=== PATIENT | male | born 1995 | race Caucasian/White ===

== ENCOUNTER 2019-05-19 19:04 | Emergency (ER) | payer SELFPAY ==
[2019-05-19 19:18] VITALS: BP 143/79; PULSE 99; RESP 16; TEMP 37.2; O2SAT 97; BMI 26.2
[2019-05-19 19:34] VITALS: PULSE 76
[2019-05-19 19:40] VITALS: BP 124/85; PULSE 76; RESP 18; TEMP 36.4; O2SAT 98
--- NOTE | 2019-05-19 19:40 | XR_ITS ---
WS: [id number] XR knee RT 3V* [id number] REASON FOR EXAM: injury FINDINGS: The meniscal spaces are normal. No fractures of the knee are seen. The patella femoral articulation normal. The patella tibial space normal. XR/XR knee RT 3V* [id number] IMPRESSION: Negative right knee
--- NOTE | 2019-05-19 19:40 | XR_ITS ---
WS: [id number] XR ankle RT min 3V* [id number] REASON FOR EXAM: injury FINDINGS: The ankle mortise is normal. No fractures tibia, fibula, or talus. The posterior shelf the tibia was normal. XR/XR ankle RT min 3V* [id number] IMPRESSION: Negative right ankle.
--- NOTE | 2019-05-19 19:41 | ED_ITS ---
HPI - Extremity Problem General: Chief complaint: Extremity Injury, Lower Stated complaint: right leg injury Time Seen by Provider: 05/19/19 19:38 Source: patient Mode of arrival: ambulatory Limitations: no limitations History of Present Illness: HPI Narrative: 24-year-old male states he fell down a cave yesterday. He states he rolled his right ankle and has had right ankle pain and knee pain since then. He states the pain is sharp in nature and rates it a 6 out of 10. He has been ambulating but states that it hurts to walk. He denies any other injuries and denies hitting his head. MD Complaint: extremity pain Onset (ago): day(s) Pain Consistency: constant Location: right Severity scale (1-10): 5 Quality: sharp Relieving factors: immobilization Exacerbating factors: weight bearing Associated symptoms: Deny chest pain, fever(s) or rash Review of Systems Const: Denies: fever, chills, body aches or change in appetite Eyes: Denies: blurry vision or eye discomfort ENMT: Denies: throat pain or dental pain Card: Denies: chest pain Resp: Denies: shortness of breath GI: Denies: abdominal pain, nausea, vomiting or diarrhea : Denies: painful urination Musc: Reports: joint pain; Denies: neck pain or back pain Skin/Breast: Denies: rash Neuro: Denies: headache Psych: Denies: depression Malcolm/Lymph: Denies: easy bruising All/Imm: Denies: hives PFSH ED PFSH: Social History Smoking and tobacco status: current every day smoker Physical Exam Const: COMMON NORMALS: no apparent distress, oriented x3 and healthy appearing HENMT: COMMON NORMALS: normocephalic and head/scalp atraumatic HEAD & SCALP: normocephalic and atraumatic Eye: COMMON NORMALS: PERRL and EOMs intact bilaterally PUPIL: Yes PERRL Neck/C-Spine: COMMON NORMALS: full ROM and supple Chest: COMMONS NORMALS: inspection of chest normal and palpation of chest normal Resp: COMMON NORMALS: normal respiratory effort, no retractions, no use of accessory muscles and clear to auscultation bilaterally AUSCULTATION: clear to auscultation bilaterally Cardio: COMMON NORMALS: regular rate, regular rhythm and no murmurs RATE: regular rate RHYTHM: regular rhythm GI: COMMON NORMALS: normal to inspection, nondistended, normoactive bowel sounds, soft to palpation, non-tender and no masses PALPATION: Yes soft Extremity: COMMON NORMALS: normal to inspection and full ROM NARRATIVE EXTREMITY EXAM: tenderness over right lateral ankle and knee Neuro: COMMON NORMALS: oriented x3, moves all extremities and no focal motor deficits Psych: COMMON NORMALS: mental status grossly normal, thought process normal and cooperative THOUGHT PROCESS: normal thought process Skin: COMMON NORMALS: no rashes or lesions noted and no wounds GENERAL SKIN EXAM: no rashes or lesions noted Course Vital Signs: Vital signs: Vital Signs Temperature 97.6 F 05/19/19 19:40 Pulse Rate 76 05/19/19 19:40 Respiratory Rate 18 05/19/19 19:40 Blood Pressure 124/85 05/19/19 19:40 Pulse Oximetry 98 05/19/19 19:40 MDM - Extremity (Nontraumatic) MDM Narrative: Medical decision making narrative: Patient presents here with an ankle sprain from a fall. Patient's x-ray here shows no acute fracture to his knee or ankle. Patient placed in Shad wrap and is to weight-bear as tolerated. He is stable for discharge and is to follow-up with primary care doctor in 3 to 5 days return if worsening. Imaging Data^: xr r knee: Attestation: I personally reviewed and interpreted this imaging study as follows: My impression: no acute abnormality xr r ankle: Attestation: I personally reviewed and interpreted this imaging study as follows: My impression: no acute abnormality Discharge Plan Discharge Patient Disposition: Home, Self-Care Clinical Impression: Ankle sprain and strain Condition: Stable Prescriptions: New EC-Naprosyn 500 mg tablet,delayed release (DR/EC) 500 mg PO BID PRN (Reason: pain) Qty: 20 RF: 0 Discharge Orders: Discharge Order (Routine); Ordered 05/19/19 Ordered By: Zabrina Monaco Discharge Diet: Advance as tolerated Discharge Activity: Resume usual activity Patient Instructions: Ankle Sprain (ED) Coding Level of Care Code ED Answering Service Operator for Analyg Fwd Exam Comprehensive
[2019-05-19] MEDS: naproxen 500 mg Tablet PO (19:48)
[2019-05-19 20:31] VITALS: BP 120/86; PULSE 72; RESP 16; O2SAT 98
--- NOTE | 2019-05-19 20:58 | PC.NURSE ---
Agree with patient assessment.
== END 2019-05-19 20:31 | disposition home or self-care (01) ==
PROVIDERS: Emergency Provider Emergency Medicine
DX: S93.401A Sprain of unspecified ligament of right ankle, initial encounter (principal); S96.911A Strain of unspecified muscle and tendon at ankle and foot level, right foot, initial encounter; F17.200 Nicotine dependence, unspecified, uncomplicated; W17.89XA Other fall from one level to another, initial encounter
CPT/HCPCS: 12345; 73562; 73610; 99281; 99283

== ENCOUNTER 2023-02-07 02:15 | Inpatient (IN) | payer OTHER, SELFPAY ==
[2023-02-07 02:18] VITALS: BP 147/118; PULSE 123; RESP 20; TEMP 36.4; O2SAT 100; BMI 27.1
[2023-02-07 03:05] LABS: Basophils % 0.2 %; Eosinophils # 0.1 10^3/uL (0.0-0.8); Eosinophils % 0.5 %; Hematocrit 47.7 % (37-53); Lymphocytes # 3.3 10^3/uL (0.8-4.8); Mean Corpuscular HGB Conc 35.8 g/dL (30-55); Mean Corpuscular Hemoglobin 31.7 pg (27-33); Mean Corpuscular Volume 88.3 fl (82-101); Mean Platelet Volume 9.1 fL (7.4-10.4); Monocytes # 0.9 10^3/uL (0.2-0.9); Monocytes % 6.5 %; Neutrophils # 8.91 10^3/uL (1.8-7.7); Neutrophils % 67.5 %; Nucleated Red Blood Cells % 0 %; Platelet Count 332 10^3/cmm (157-399); Red Cell Distribution Width 11.3 % (12.1-15.1)
--- NOTE | 2023-02-07 03:15 | ED.C_ITS ---
HPI - Psych 2 General: Chief Complaint: Psychiatric Symptoms Stated Complaint: HI Time Seen by Provider: 02/07/23 02:17 History of Present Illness: Patient presents to the ER with homicidal ideation and says he is acutely psychotic. Patient states that if he leaves here he is gone to go kill someone or kill himself. Patient states he has been inpatient here before and would like to go inpatient again before he does something he does not want to do. Patient does admit to drinking and smoking weed tonight. Upon further talking nursing patient told him that his and kids ran off to another man's house and he wants to go over there and kill him or kill himself Review of Systems 2 General: Reports: 10 or more systems reviewed and unremarkable except in HPI and below PFSH ED 2 PFSH: Social History Smoking and tobacco/nicotine status: current every day tobacco/nicotine user Physical Exam 2 Const: COMMON NORMALS: no acute distress, average body habitus, patient oriented x3, no limitations, healthy appearing, alert and well nourished HENMT: COMMON NORMALS: normocephalic, atraumatic, hearing grossly normal bilaterally, external ears normal, Normal external nose present, moist oral mucous membranes and oropharynx normal HEAD & SCALP: normocephalic and atraumatic NOSE: Normal external nose present EXTERNAL EAR: Yes external ears normal Neck/C-Spine: COMMON NORMALS: no JVD Chest: COMMONS NORMALS: normal inspection of the chest and normal palpation of entire chest wall Resp: COMMON NORMALS: normal respiratory effort, No retractions, No use of accessory muscles and clear to auscultation bilaterally AUSCULTATION: clear to auscultation bilaterally Cardio: COMMON NORMALS: no JVD, regular rate, regular rhythm, S1 normal heart sound present, S2 normal heart sound present, No gallops present (Cardio), No clicks present (Cardio), No murmurs present (Cardio) and No rub (Cardio) R ATE: regular rate RHYTHM: regular rhythm HEART SOUNDS: S1 normal heart sound present and S2 normal heart sound present GI: COMMON NORMALS: Normal to inspection, nondistended, normoactive bowel sounds present, Soft to palpation, non-tender, No hepatosplenomegaly present and no masses PALPATION: Yes Soft to palpation and Yes No hepatosplenomegaly present Neuro: COMMON NORMALS: patient oriented x3 SENSORIUM/ORIENTATION: Yes alert Course 2 Vital Signs: Vital signs: Vital Signs Temperature 97.6 F 02/07/23 02:18 Pulse Rate 123 H 02/07/23 02:18 Respiratory Rate 20 H 02/07/23 02:18 Blood Pressure 147/118 02/07/23 02:18 Pulse Oximetry 100 02/07/23 02:18 Oxygen Delivery Me thod Room Air 02/07/23 02:18 MDM - Psych Medical Decision Making Patient presents with homicidal and suicidal type ideation. Patient was worked up in a standard psychiatric fashion. Dr. Matthews was consulted who agreed for further evaluation and treatment patient will be placed in MPU. Differential Diagnosis Likely acute psychosis and suicidal ideation Medical Records I reviewed the patient's medical records. Lab Data I reviewed the patient's lab results. 02/07/23 03:00 02/07/23 03:00 Laboratory Results WBC 13.20 10^3/uL (3.29-11.43) H 02/07/23 03:00 RBC 5.40 10^6/uL (3.85-5.65) 02/07/23 03:00 Hgb 17.10 g/dL (11.27-16.99) H 02/07/23 03:00 Hct 47.7 % (37-53) 02/07/23 03:00 MCV 88.3 fl (82-101) 02/07/23 03:00 MCH 31.7 pg (27-33) 02/07/23 03:00 MCHC 35.8 g/dL (30-55) 02/07/23 03:00 RDW 11.3 % (12.1-15.1) L 02/07/23 03:00 Plt Count 332 10^3/cmm (157-399) 02/07/23 03:00 MPV 9.1 fL (7.4-10.4) 02/07/23 03:00 Neut % (Auto) 67.5 % 02/07/23 03:00 Lymph % (Auto) 25.0 % 02/07/23 03:00 Dougherty % (Auto) 6.5 % 02/07/23 03:00 Eos % (Auto) 0.5 % 02/07/23 03:00 Baso % (Auto) 0.2 % 02/07/23 03:00 Neut # (Auto) 8.91 10^3/uL (1.8-7.7) H 02/07/23 03:00 Lymph # (Auto) 3.3 10^3/uL (0.8-4.8) 02/07/23 03:00 Dougherty # (Auto) 0.9 10^3/uL (0.2-0.9) 02/07/23 03:00 Eos # (Auto) 0.1 10^3/uL (0.0-0.8) 02/07/23 03:00 Baso # (Auto) 0.0 10^3/uL (0.0-0.1) 02/07/23 03:00 Nucleated RBC % (auto) 0 % 02/07/23 03:00 Nucleated RBCs # 0.0 /100WBC 02/07/23 03:00 Sodium 137 mmol/L (136-145) 02/07/23 03:00 Potassium 3.4 mmol/L (3.5-5.1) L 02/07/23 03:00 Chloride 99 mmol/L (98-107) 02/07/23 03:00 Carbon Dioxide 25 mmol/L (22-29) 02/07/23 03:00 Anion Gap 16.4 (5-19) 02/07/23 03:00 BUN 13 mg/dL (6-20) 02/07/23 03:00 Creatinine 1.0 mg/dL (0.7-1.2) 02/07/23 03:00 GFR Calculation 91.0 mL/min (90-130) 02/07/23 03:00 Glucose 98 mg/dL (65-115) 02/07/23 03:00 Calculated Osmolality 284 mOsm/kg (285-295) L 02/07/23 03:00 Calcium 10.2 mg/dL (8.5-10.5) 02/07/23 03:00 Total Bilirubin 0.4 mg/dL (0.15-1.2) 02/07/23 03:00 AST 25 U/L (0-40) 02/07/23 03:00 ALT 30 U/L (0-41) 02/07/23 03:00 Alkaline Phosphatase 114 U/L (40-130) 02/07/23 03:00 Total Protein 7.9 g/dL (6.6-8.7) 02/07/23 03:00 Albumin 4.8 g/dL (3.5-5.2) 02/07/23 03:00 Globulin 3.1 g/dL (1.3-4.6) 02/07/23 03:00 Salicylates < 0.3 mg/dL (3-10) L 02/07/23 03:00 Acetaminophen < 5.0 ug/mL (10-30) L 02/07/23 03:00 Ethyl Alcohol 83 mg/dL (0-10) H 02/07/23 03:00 No radiology studies performed this visit Discharge Plan Discharge Patient Disposition: Admitted As Inpatient Clinical Impression: Acute psychosis, Suicidal ideation, Homicidal ideation Condition: Stable Coding Level of Care Code ED Shipping And Receiving Specialist for Jolie Mccoy
[2023-02-07 03:22] LABS: Acetaminophen < 5.0 ug/mL (10-30); Alanine Aminotransferase 30 U/L (0-41); Albumin Level 4.8 g/dL (3.5-5.2); Alcohol Level 83 mg/dL (0-10); Alkaline Phosphatase 114 U/L (40-130); Anion Gap 16.4 (5-19); Aspartate Amino Transferase 25 U/L (0-40); Blood Urea Nitrogen 13 mg/dL (6-20); Calcium 10.2 mg/dL (8.5-10.5); Carbon Dioxide 25 mmol/L (22-29); Chloride 99 mmol/L (98-107); Globulin 3.1 g/dL (1.3-4.6); Glucose 98 mg/dL (65-115); Osmolality Calculated 284 mOsm/kg (285-295); Potassium 3.4 mmol/L (3.5-5.1); Salicylate < 0.3 mg/dL (3-10); Sodium 137 mmol/L (136-145); Total Bilirubin 0.4 mg/dL (0.15-1.2); Total Protein 7.9 g/dL (6.6-8.7)
[2023-02-07 03:23] LABS: Add Urine Microscopic? NO; Charge for UA Resulting for Rev
[2023-02-07 03:33] LABS: Amphetamines Screen Urine Negative (Negative); Barbiturates Screen Urine Negative (Negative); Benzodiazepines Screen Urine Negative (Negative); Cocaine Screen Urine Negative (Negative); Opiate Screen Urine Negative (Negative); PCP Screen Urine Negative (Negative); THC Screen Urine Positive (Negative)
[2023-02-07 03:36] LABS: Bilirubin Urine Neg (Negative); Blood Urine Neg (Negative); Glucose Urine UA Norm (Normal); Ketones Urine Negative (Negative); Leukocyte Esterase Urine Negative (Negative); Nitrate Urine Negative (Negative); Protein Urine Neg (Negative); Specific Gravity, Urine 1.005 (1.005-1.030); Urine Appearance Clear (CLEAR); Urine Color Colorless (Yellow); Urobilinogen Urine Neg (Negative); pH Urine 7 (5-7)
[2023-02-07 03:52] VITALS: BP 146/85; PULSE 77; RESP 18; TEMP 36.8; O2SAT 98
[2023-02-07 03:58] VITALS: BP 134/80; PULSE 115; RESP 16; O2SAT 100
--- NOTE | 2023-02-07 04:01 | PC.NURSE ---
Report called to NPU. All questions and concerns addressed at time of report.
[2023-02-07] MEDS: LORazepam 2 mg Tablet PO (04:27)
[2023-02-07] MEDS: ibuprofen 600 mg Tablet PO ×2 (04:27→15:14)
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
[2023-02-07 06:00] VITALS: RESP 18
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
--- NOTE | 2023-02-07 13:23 | XR_ITS ---
WS: [id number] Right knee, 3 views, 02/07/2023 Clinical Data: recent fall Comparison: Right knee, 05/19/2019 Findings: No fractures or dislocations are seen. The joint spaces are normal. The patella is intact. The soft t issues are unremarkable. Impression: Negative right knee. Kellgren-Grady Classification: grade 0 (none): definite absence of x-ray changes of osteoarthritis
[2023-02-07] MEDS: thiamine 100 mg Tablet PO (13:26)
[2023-02-07] MEDS: multivitamin therapeutic Tablet 1 TAB PO (13:26)
[2023-02-07] MEDS: folic acid 1 mg Tablet PO (13:26)
[2023-02-07 14:00] VITALS: BP 121/71; PULSE 56; RESP 16; TEMP 36.4; O2SAT 97
[2023-02-07] MEDS: nicotine 2 mg Gum BUCCAL ×3 (14:57→20:12)
--- NOTE | 2023-02-07 14:58 | PC.OT ---
OT eval attempt made on 02/07/2023 with nursing reporting pt is not appropriate to be seen. Will attempt at later time.
[2023-02-07 21:05] VITALS: BP 141/82; PULSE 73; RESP 18; TEMP 36.7; O2SAT 93
--- NOTE | 2023-02-07 21:34 | PC.NURSE ---
staff air defense officer here to serve patient with exparte paperwork. Pt became visibly upset w/increased anxiety d/t the orders received. Pt dropped his papers in the floor and want to go back to the floor. Pt is now talking on the phone. Behavior monitoring continues.
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
[2023-02-07] MEDS: trazodone 50 mg Tablet PO (23:23)
--- NOTE | 2023-02-08 06:43 | PC.NURSE ---
pt resting no vs per rn resp documented
[2023-02-08] MEDS: folic acid 1 mg Tablet PO (09:15)
[2023-02-08] MEDS: thiamine 100 mg Tablet PO (09:15)
[2023-02-08] MEDS: multivitamin therapeutic Tablet 1 TAB PO (09:15)
[2023-02-08] MEDS: nicotine 21 mg Patch 1 PATCH TRANSDERMA (09:16)
--- NOTE | 2023-02-08 09:34 | P.NPUPN_ITS ---
Subjective NPU 2 Subjective: Patient presented today reporting that he is starting to be able to think a little bit more clear about the situation. We had a long discussion about the consequences of his choices. And the unfortunate cost that continued behavior like this would have. We talked about the long-term impact on the relationship with his daughters and the importance of him focusing on them and not the relationship with his significant other that has clearly been deteriorating for some time. Mental Status Exam 2 MSE Comments: This is a well-nourished, well-developed, white male, in hospital scrubs, with adequate grooming and eye contact. With extremely long hair. No abnormal movements, except for mild psychomotor agitation. More cooperative with exam in mild to moderate distress. Speech was normal rate and volume. Mood described as better than yesterday; affect congruent. Thought process, organized. Thought content: patient denies active suicidal or homicidal ideation, there were no delusions reported or noted, patient denied any auditory or visual hallucinations. Attention, concentration, and memory appeared intact, but none were formally tested. Alert and oriented times three. Insight and judgment appear improving. Impulse control is impaired. Vitals/I&O/Wt Last Vital Signs Temp 98.0 F 02/07/23 21:05 Pulse 73 02/07/23 21:05 Resp 18 02/07/23 21:05 BP 141/82 02/07/23 21:05 Pulse Ox 93 02/07/23 21:05 O2 Del Method Room Air 02/07/23 14:00 Weight last 48 hrs Weight 90.718 kg Data NPU 02/07/23 03:00 02/07/23 03:00 A&P Assessment and plan (1) Homicidal ideation: (2) Suicidal ideation: (3) Acute psychosis: (4) Partner relational problem: (5) Cannabis use disorder, severe, dependence: (6) PTSD (post-traumatic stress disorder): Plan This is a 27-year-old white male with history of trauma and mental health issues along with active addiction who presents with significant partner relational problem and lethality towards himself and others on a 96-hour hold. 1.? Encourage individual, group, and milieu therapy. 2.? Continue q-15-minute checks for safety. 3. Discussed the possibility of initiating SSRI. 4. Encourage sober living treatment after discharge at the highest level of care to which he is willing to commit. 5. We will monitor for issues of lethality on a 96-hour hold given the clear and present threat. Involuntary Hold Information 2 96 Hour Hold: 96 Hour Involuntary Admission: No Attestations NPU 2 Medical Necessity Statement*: Inpatient hospitalization is medically necessary and the clinically appropriate intervention, at this time. We will monitor medications and make changes as indicated. Likely length of stay is 2-4 days. Coding Level of Care Code Acute Code for [facility] Fwd Diagnoses Homicidal ideation R45.850 Suicidal ideation R45.851 Acute psychosis F23 Partner relational problem Z63.0 Cannabis use disorder, severe, dependence F12.20 PTSD (post-traumatic stress disorder) F43.10
--- NOTE | 2023-02-08 09:46 | PC.NURSE ---
Patient denies avh and si/hi. When asked if he felt like hurting himself or others he stated, that's a no now. He did say he was just sad now because he was given an ex parte yesterday and is upset that it was for his kids. He said, I'd never ever hurt my kids. Patient asked this nurse if I knew any of the motherfuckers that worked at [facility] in [place]. When this RN said no he stated, well I would've burnt the place down if it wasn't so close to the police station.
[2023-02-08] MEDS: ibuprofen 600 mg Tablet PO ×2 (10:18→16:49)
[2023-02-08] MEDS: nicotine 2 mg Gum BUCCAL ×3 (11:40→21:07)
[2023-02-08 14:00] VITALS: BP 127/82; PULSE 80; RESP 18; TEMP 36.6; O2SAT 96
[2023-02-08 22:00] VITALS: BP 148/97; PULSE 65; RESP 16; TEMP 36.6; O2SAT 98
[2023-02-08] MEDS: trazodone 50 mg Tablet PO (22:24)
[2023-02-09 06:00] VITALS: BP 121/79; PULSE 72; RESP 18; O2SAT 98
[2023-02-09] MEDS: thiamine 100 mg Tablet PO (09:03)
[2023-02-09] MEDS: folic acid 1 mg Tablet PO (09:03)
[2023-02-09] MEDS: multivitamin therapeutic Tablet 1 TAB PO (09:04)
[2023-02-09] MEDS: nicotine 21 mg Patch 1 PATCH TRANSDERMA (09:13)
--- NOTE | 2023-02-09 11:26 | P.NPUPN_ITS ---
Subjective NPU 2 Subjective: Patient presented today reporting that he is feeling better overall. He reports that he is focusing on his daughters and being what he needs to be for them and is letting go of this intense feeling he had that he needed to make the relationship with his ex work. He reports that the discussion we had about the 4 billion other women that exist on the planet that that really struck him in July he will think that his best option is to get himself back on track and hope that 1 of those 4 billion women can care about him for him. We discussed working with the social work team tomorrow to start looking at follow-up plans. Mental Status Exam 2 MSE Comments: This is a well-nourished, well-developed, white male, in hospital scrubs, with adequate grooming and eye contact. With extremely long hair. No abnormal movements, except for mild psychomotor agitation. More cooperative with exam in mild to moderate distress. Speech was normal rate and volume. Mood described as better, thinking more clearly; affect congruent. Thought process, organized. Thought content: patient denies active suicidal or homicidal ideation, there were no delusions reported or noted, patient denied any auditory or visual hallucinations. Attention, concentration, and memory appeared intact, but none were formally tested. Alert and oriented times three. Insight and judgment appear improving. Impulse control is impaired. Vitals/I&O/Wt Last Vital Signs Temp 97.9 F 02/08/23 22:00 Pulse 72 02/09/23 06:00 Resp 18 02/09/23 06:00 BP 121/79 02/09/23 06:00 Pulse Ox 98 02/09/23 06:00 O2 Del Method Room Air 02/09/23 06:00 Weight last 48 hrs Weight 95.878 kg Data NPU 02/07/23 03:00 02/07/23 03:00 A&P Assessment and plan (1) Homicidal ideation: (2) Suicidal ideation: (3) Acute psychosis: (4) Partner relational problem: (5) Cannabis use disorder, severe, dependence: (6) PTSD (post-traumatic stress disorder): Plan This is a 27-year-old white male with history of trauma and mental health issues along with active addiction who presents with significant partner relational problem and lethality towards himself and others on a 96-hour hold. 1.? Encourage individual, group, and milieu therapy. 2.? Continue q-15-minute checks for safety. 3. Discussed the possibility of initiating SSRI. 4. Encourage sober living treatment after discharge at the highest level of care to which he is willing to commit. 5. We will monitor for issues of lethality on a 96-hour hold given the concern for active threat. Involuntary Hold Information 2 96 Hour Hold: 96 Hour Involuntary Admission: No Attestations NPU 2 Medical Necessity Statement*: Inpatient hospitalization is medically necessary and the clinically appropriate intervention, at this time. We will monitor medications and make changes as indicated. Likely length of stay is 1-3 days. Coding Level of Care Code Acute Code for [facility] Fwd Diagnoses Homicidal ideation R45.850 Suicidal ideation R45.851 Acute psychosis F23 Partner relational problem Z63.0 Cannabis use disorder, severe, dependence F12.20 PTSD (post-traumatic stress disorder) F43.10
--- NOTE | 2023-02-09 13:30 | PC.NURSE ---
took off nicotine patch & gave to nurses, requested nicotine gum. staff told patient he could have gum at 3:30
[2023-02-09 14:00] VITALS: BP 126/82; PULSE 83; RESP 20; TEMP 36.8; O2SAT 97
[2023-02-09] MEDS: nicotine 2 mg Gum BUCCAL ×4 (15:33→21:54)
[2023-02-09 19:45] VITALS: BP 156/89; PULSE 93; RESP 18; O2SAT 96
[2023-02-10] MEDS: trazodone 50 mg Tablet PO ×2 (00:02→20:23)
[2023-02-10 06:00] VITALS: RESP 16
--- NOTE | 2023-02-10 07:08 | P.NPUPN_ITS ---
Subjective NPU 2 Subjective: Patient presented today reporting that he is feeling better. He once again denied any lethality towards himself or others and continues to express a focus on his daughter's and that he knows that it is not worth it to have any retribution. We discussed continuing to monitor him for safety but at this point not planning on extending the hold. Mental Status Exam 2 MSE Comments: This is a well-nourished, well-developed, white male, in hospital scrubs, with adequate grooming and eye contact. With extremely long hair. No abnormal movements. Cooperative with exam in no acute distress. Speech was normal rate and volume. Mood described as better; affect congruent. Thought process, organized. Thought content: patient denies active suicidal or homicidal ideation, there were no delusions reported or noted, patient denied any auditory or visual hallucinations. Attention, concentration, and memory appeared intact, but none were formally tested. Alert and oriented times three. Insight and judgment appear improving. Impulse control is improving. Vitals/I&O/Wt Last Vital Signs Temp 98.2 F 02/09/23 14:00 Pulse 93 02/09/23 19:45 Resp 16 02/10/23 06:00 BP 156/89 02/09/23 19:45 Pulse Ox 96 02/09/23 19:45 O2 Del Method Room Air 02/09/23 19:45 Weight last 48 hrs Weight 95.878 kg Data NPU 02/07/23 03:00 02/07/23 03:00 A&P Assessment and plan (1) Homicidal ideation: (2) Suicidal ideation: (3) Acute psychosis: (4) Partner relational problem: (5) Cannabis use disorder, severe, dependence: (6) PTSD (post-traumatic stress disorder): Plan This is a 27-year-old white male with history of trauma and mental health issues along with active addiction who presents with significant partner relational problem and lethality towards himself and others on a 96-hour hold. 1.? Encourage individual, group, and milieu therapy. 2.? Continue q-15-minute checks for safety. 3. Discussed the possibility of initiating SSRI. 4. Encourage sober living treatment after discharge at the highest level of care to which he is willing to commit. 5. We will monitor for issues of lethality on a 96-hour hold given the concern for active threat. Involuntary Hold Information 2 96 Hour Hold: 96 Hour Involuntary Admission: No Attestations NPU 2 Medical Necessity Statement*: Inpatient hospitalization is medically necessary and the clinically appropriate intervention, at this time. We will monitor medications and make changes as indicated. Likely length of stay is 1-3 days. Coding Level of Care Code Acute Code for [facility] Fwd Diagnoses Homicidal ideation R45.850 Suicidal ideation R45.851 Acute psychosis F23 Partner relational problem Z63.0 Cannabis use disorder, severe, dependence F12.20 PTSD (post-traumatic stress disorder) F43.10
[2023-02-10] MEDS: thiamine 100 mg Tablet PO (07:55)
[2023-02-10] MEDS: folic acid 1 mg Tablet PO (07:55)
[2023-02-10] MEDS: multivitamin therapeutic Tablet 1 TAB PO (07:55)
[2023-02-10] MEDS: nicotine 2 mg Gum BUCCAL ×4 (07:56→20:35)
[2023-02-10 14:00] VITALS: BP 128/71; PULSE 83; RESP 17; TEMP 36.8; O2SAT 98
[2023-02-10 20:31] VITALS: BP 142/101; PULSE 106; RESP 20; TEMP 36.6; O2SAT 97
[2023-02-11 06:00] VITALS: BP 107/70; PULSE 76; RESP 18; O2SAT 96
--- NOTE | 2023-02-11 06:28 | PC.NURSE ---
When obtain vitals this morning, this tech and the other aid observed a circular bruise on patients left inner bicep. Asked patient about the bruise and patient stated that he woke up yesterday morning and noticed it. Charge nurse was notify
[2023-02-11] MEDS: nicotine 21 mg Patch 1 PATCH TRANSDERMA (08:42)
[2023-02-11] MEDS: thiamine 100 mg Tablet PO (08:43)
[2023-02-11] MEDS: folic acid 1 mg Tablet PO (08:43)
[2023-02-11] MEDS: multivitamin therapeutic Tablet 1 TAB PO (08:43)
[2023-02-11 14:00] VITALS: BP 140/90; PULSE 83; RESP 16; TEMP 36.6; O2SAT 97
[2023-02-11] MEDS: acetaminophen 325 mg Tablet 650 MG PO (16:41)
--- NOTE | 2023-02-11 18:11 | P.NPUPN_ITS ---
Subjective NPU 2 Subjective: Patient presented today reporting that he has been in contact with his mother and brother with hopes of getting his stuff from his ex and has a plan to go down to [place]. He continued to show no signs of the aggressive anger towards the other man. He reported excepting his situation though not being happy about it. He continued to endorse a focus on his daughters and making sure he is doing all that he can do so that he will be able to see them with regularity. He reports that he understands that there will be legal ramifications of the circumstances that led to his hospitalization and he endorses being prepared to do what he has to do to get past that. We discussed a plan for discharge prior to the 96-hour hold running out with tentative plan for discharge tomorrow. Mental Status Exam 2 MSE Comments: This is a well-nourished, well-developed, white male, in hospital scrubs, with adequate grooming and eye contact. With extremely long hair. No abnormal movements. Cooperative with exam in no acute distress. Speech was normal rate and volume. Mood described as better; affect congruent. Thought process, organized. Thought content: patient denies active suicidal or homicidal ideation, there were no delusions reported or noted, patient denied any auditory or visual hallucinations. Attention, concentration, and memory appeared intact, but none were formally tested. Alert and oriented times three. Insight and judgment appear improving. Impulse control is improving. Vitals/I&O/Wt Last Vital Signs Temp 98.2 F 02/11/23 20:27 Pulse 100 02/11/23 20:27 Resp 18 02/11/23 20:27 BP 127/72 02/11/23 20:27 Pulse Ox 95 02/11/23 20:27 O2 Del Method Room Air 02/11/23 20:27 Data NPU 02/07/23 03:00 02/07/23 03:00 A&P Assessment and plan (1) Homicidal ideation: (2) Suicidal ideation: (3) Acute psychosis: (4) Partner relational problem: (5) Cannabis use disorder, severe, dependence: (6) PTSD (post-traumatic stress disorder): Plan This is a 27-year-old white male with history of trauma and mental health issues along with active addiction who presents with significant partner relational problem and lethality towards himself and others on a 96-hour hold. 1.? Encourage individual, group, and milieu therapy. 2.? Continue q-15-minute checks for safety. 3. Discussed the possibility of initiating SSRI. 4. Encourage sober living treatment after discharge at the highest level of care to which he is willing to commit. 5. We will monitor for issues of lethality on a 96-hour hold given the concern for active threat. We will not move forward with a 21-day hold and plan for discharge tomorrow. Involuntary Hold Information 2 96 Hour Hold: 96 Hour Involuntary Admission: No Attestations NPU 2 Medical Necessity Statement*: Inpatient hospitalization is medically necessary and the clinically appropriate intervention, at this time. We will monitor medications and make changes as indicated. Likely length of stay is 1-3 days. Coding Level of Care Code Acute Code for [facility] Fwd Diagnoses Homicidal ideation R45.850 Suicidal ideation R45.851 Acute psychosis F23 Partner relational problem Z63.0 Cannabis use disorder, severe, dependence F12.20 PTSD (post-traumatic stress disorder) F43.10
[2023-02-11 20:27] VITALS: BP 127/72; PULSE 100; RESP 18; TEMP 36.8; O2SAT 95
[2023-02-11] MEDS: nicotine 2 mg Gum BUCCAL (20:29)
[2023-02-12] MEDS: trazodone 50 mg Tablet PO (00:08)
[2023-02-12 06:00] VITALS: BP 129/74; PULSE 82; RESP 16; O2SAT 99
[2023-02-12] MEDS: thiamine 100 mg Tablet PO (07:45)
[2023-02-12] MEDS: multivitamin therapeutic Tablet 1 TAB PO (07:45)
[2023-02-12] MEDS: folic acid 1 mg Tablet PO (07:45)
[2023-02-12] MEDS: acetaminophen 325 mg Tablet 650 MG PO (07:45)
[2023-02-12] MEDS: nicotine 21 mg Patch 1 PATCH TRANSDERMA (10:26)
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
[2023-02-12 12:02] VITALS: BP 129/74; PULSE 82; RESP 16; O2SAT 99
[2023-02-12] MEDS: nicotine 2 mg Gum BUCCAL (14:51)
--- NOTE | 2023-02-12 16:42 | PC.NURSE ---
PT LEFT HIS MEDICATIONS UPON DISCHARGE. ATTEMPTED TO CONTACT PT AND PT DOES NOT HAVE ACCURATE PHONE NUMBER ON FILE WILL PUT MEDICATION IN PYXS IF PT COMES TO GET MEDICATION. MEDICATION WAS A VITAMIN B-1.
--- NOTE | 2023-02-12 16:50 | PC.NURSE ---
PT CALLED BACK AND HAS AGREED TO PICK HIS VITAMINS UP IN THE NEXT COUPLE DAYS.
== END 2023-02-12 16:24 | disposition home or self-care (01) | DRG 885 ==
LOC: ER 03:30 → NP 03:38
PROVIDERS: Admitting Provider Psychiatry & Neurology Psychiatry; Emergency Provider Emergency Medicine; Visit Provider Psychiatry & Neurology Psychiatry
DX: F23 Brief psychotic disorder (principal); R45.851 Suicidal ideations; Z59.00 Homelessness unspecified; R45.850 Homicidal ideations; F17.210 Nicotine dependence, cigarettes, uncomplicated; F12.20 Cannabis dependence, uncomplicated; F43.10 Post-traumatic stress disorder, unspecified; M25.561 Pain in right knee; Z63.0 Problems in relationship with spouse or partner; Z91.51 Personal history of suicidal behavior
CPT/HCPCS: 36415; 73562; 80053; 80306; 80307; 81003; 85025; 97150; 97165; 99285

== ENCOUNTER 2023-02-20 17:56 | Emergency (ER) | payer OTHER, SELFPAY ==
[2023-02-20 17:59] VITALS: BMI 28.5
[2023-02-20 18:02] VITALS: BP 156/104; PULSE 65; RESP 17; TEMP 36.6; O2SAT 98
--- NOTE | 2023-02-20 18:25 | W.ED.PSYCHS ---
HPI - Psych General: Chief Complaint: Psychiatric Symptoms Stated Complaint: SUICIDAL IDEATIONS Time Seen by Provider: 02/20/23 17:58 Source: patient and police Mode of arrival: other (Police) Limitations: no limitations History of Present Illness: 27-year-old male who was arrested this morning. He is brought here by police as a state he made self-harm statements and they [facility] who brought him up here for psych eval. Patient actually had been admitted here little over a week ago and was just released from our psych hospital. Patient states to me he is not suicidal not homicidal he states that he told the officers that he was admitted to the [facility] here a week ago and they brought him up here. Associated symptoms: Deny depression Review of Systems Const: Denies: fever(s), chills, body aches or change in appetite Eyes: Denies: blurry vision or eye discomfort ENMT: Denies: throat pain or dental pain Card: Denies: chest pain Resp: Denies: dyspnea GI: Denies: abdominal pain, nausea, vomiting or diarrhea : Denies: dysuria Musc: Denies: neck pain or back pain Skin/Breast: Denies: rash Neuro: Denies: headache(s) Psych: Denies: depression Malcolm/Lymph: Denies: easy bruising All/Imm: Denies: urticaria PFSH ED PFSH: Social History Smoking and tobacco/nicotine status: current every day tobacco/nicotine user Physical Exam Const: COMMON NORMALS: no acute distress, patient oriented x3 and healthy appearing HENMT: COMMON NORMALS: normocephalic and atraumatic HEAD & SCALP: normocephalic and atraumatic Eye: COMMON NORMALS: Equal, round and reactive pupils present and EOMs intact bilaterally PUPIL: Yes Equal, round and reactive pupils present Neck/C-Spine: COMMON NORMALS: full ROM and supple Chest: COMMONS NORMALS: normal inspection of the chest and normal palpation of entire chest wall Resp: COMMON NORMALS: normal respiratory effort, No retractions, No use of accessory muscles and clear to auscultation bilaterally AUSCULTATION: clear to auscultation bilaterally Cardio: COMMON NORMALS: regular rate, regular rhythm and No murmurs present (Cardio) RATE: regular rate RHYTHM: regular rhythm GI: COMMON NORMALS: Normal to inspection, nondistended, normoactive bowel sounds present, Soft to palpation, non-tender and no masses PALPATION: Yes Soft to palpation Extremity: COMMON NORMALS: normal to inspection and full ROM Neuro: COMMON NORMALS: patient oriented x3, moves all extremities and no focal motor deficits Psych: COMMON NORMALS: mental status grossly normal, Normal thought process present and cooperative THOUGHT PROCESS: Normal thought process present Skin: COMMON NORMALS: no rashes or lesions noted and no wounds GENERAL SKIN EXAM: no rashes or lesions noted Course Vital Signs: Vital signs: Vital Signs Temperature 97.8 F 02/20/23 18:02 Pulse Rate 65 02/20/23 18:02 Respiratory Rate 17 02/20/23 18:02 Blood Pressure 156/104 02/20/23 18:02 Pulse Oximetry 98 02/20/23 18:02 Oxygen Delivery Me thod Room Air 02/20/23 18:02 [facility] - Psych Medical Decision Making Patient [facility] here [facility] with concerns of psychiatric issues patient adamantly denies any SI or HI to me he has been released from penitentiary I did have him evaluated by Dr. Matthews who knows him as he admitting to the [facility] roughly a week and a half ago. Spoke to Dr. Matthews he feels patient is not a threat to himself or others as well he is stable for discharge at this time. Medical Records I reviewed the patient's medical records. No radiology studies performed this visit Discharge Plan Discharge Patient Disposition: Home Clinical Impression: Depression Qualifiers: Depression Type: unspecified Qualified Code(s): F32.A - Depression, unspecified Condition: Stable Prescriptions: No Action Vitamin B-1 (mononitrate) 100 mg Tablet 100 mg PO DAILY 30 Days Qty: 30 1RF Discharge Orders: Discharge ED (Routine); Ordered 02/20/23 Ordered By: Zabrina Monaco Discharge Diet: Advance as tolerated Discharge Activity: Resume usual activity Patient Instructions: Depression (ED) Coding Level of Care Code ED Abstract Writer for Jolie Mccoy
== END 2023-02-20 18:50 | disposition home or self-care (01) ==
PROVIDERS: Emergency Provider Emergency Medicine
DX: F32.A Depression, unspecified (principal); Z72.0 Tobacco use
CPT/HCPCS: 99283